=== PATIENT | male | born 1950 | race Caucasian/White ===

== ENCOUNTER 2021-06-30 08:00 | Day surgery (SDC) | payer BC, MEDICARE, OTHER ==
[~2021-06-30 08:00] MED LIST: Midazolam 1 MG/ML 2 ML SDV ONE; Propofol 200 MG/20 ML SDV ONE; fentaNYL 100 MCG/2 ML SDV ONE
[2021-06-30] MEDS ORDERED: Sodium Chloride 0.9% 1,000 ML IV SCH (08:45)
--- NOTE | 2021-06-30 11:55 | OR ---
DATE OF PROCEDURE: 06/30/2021 SURGEON: Mega Phipps MD PROCEDURE: Colonoscopy. FINDINGS: Diverticulosis, mild to moderate, mostly limited to sigmoid colon. COMPLICATIONS: None. SAP SOLUTION MANAGER CONSULTANT: None. ANESTHESIA: MAC. PREOPERATIVE DIAGNOSIS: Screening colonoscopy. POSTOPERATIVE DIAGNOSIS: Screening colonoscopy. RISKS: Risks, benefits, alternatives, and limitations including, but not limited to infection, bleeding, perforation, false positives and false negatives were explained to the patient who wished to proceed. PROCEDURE IN DETAIL: The patient was placed in left lateral decubitus position. Digital rectal exam was performed without abnormality. Scope was introduced and advanced atraumatically to the ileocecal valve. A photo was taken. The scope was brought back to the ascending, transverse, descending colon, and retroflexed. No evidence of old or new blood. No masses. No polyps. The diverticulosis described as [id number] without evidence of diverticulitis or bleeding. No abnormalities on retroflexion. Greater than 8 minutes was spent removing the scope. The patient tolerated the procedure well. Mega Phipps MD /[id number]
--- NOTE | 2021-07-08 11:05 | PN ---
DATE OF SERVICE: 07/07/2021 ADDENDUM: Of note, the patient also had a sigmoid colon polyp that was approximately 8 mm in size. This was completely removed using hot snare wire device. No abnormal bleeding was noted after removal. The patient tolerated the procedure well. Mega Phipps MD /[id number]
== END 2021-06-30 11:23 | disposition home or self-care (01) ==
LOC: JP.SDS 08:00
PROVIDERS: ATTEND Surgery
DX: Z12.11 Encounter for screening for malignant neoplasm of colon (principal); K63.5 Polyp of colon; K57.30 Diverticulosis of large intestine without perforation or abscess without bleeding; Z85.038 Personal history of other malignant neoplasm of large intestine
CPT/HCPCS: 45385; 88305; J2250; J2704; J3010; J7030